=== PATIENT | female | born 1945 | race Caucasian/White ===

== ENCOUNTER → 2017-06-02 | Day surgery (SDC) | payer MEDICARE ==
[~2017-06-02] MED LIST: ONDANSETRON HCL 4 MG/2 ML VIAL IV PUSH ONE; PROPOFOL 200 MG/20 ML AMP IV ONE
--- NOTE | 2017-06-09 14:17 | TN ---
cc: JERROD CALDERON MD DATE OF SURGERY 06/02/2017 PREOPERATIVE DIAGNOSIS Epiretinal membrane left eye, metamorphopsia, retinal striae, retinal edema. POSTOPERATIVE DIAGNOSIS Epiretinal membrane left eye, metamorphopsia, retinal striae, retinal edema. PROCEDURE Pars plana vitrectomy, removal of epiretinal membrane/internal limiting membrane, air-fluid exchange, endolaser, left eye. COMPLICATIONS None. BLOOD LOSS Less than [address] Benitez general. INDICATION This is a delightful patient with worsening vision in her left eye. The vision was now to the point that it is interfering with daily life and activities and the patient elected for surgical correction. The patient understands that some visual distortion will likely remain after surgery. PROCEDURE NOTE After informed consent was obtained, the patient was brought to the operating room. General anesthesia was established and the left eye was prepped and draped in sterile fashion with Betadine in the conjunctival fornix. A three-port pars plana vitrectomy was established with self-retaining infusion cannula. Core vitreous was evacuated. Vitreous traction of the peripheral retina was relieved with vitrectomy. The ERM/ILM on complex was highlighted with ICG and removed with Kevin ILM forceps. The retina had renewed mobility and improved contour. Scleral depressed examination revealed areas of peripheral retinal thinning and impending retinal holes; these areas were treated with endolaser. Air-fluid exchange was carried out. The trocars were removed and sclerotomies closed. Subconjunctival injection of Ancef and dexamethasone were given. The eye was patched with Tobramycin ointment. The patient was brought to the recovery room in stable condition and will continue followup with [facility] for her postoperative care. Jerrod Caldreon MD KW/SSB /9:46 PM /7:02 AM
== END | disposition home or self-care (01) ==
LOC: ESDC 08:53
PROVIDERS: ATTEND Ophthalmology
DX: H35.372 Puckering of macula, left eye (principal); H53.15 Visual distortions of shape and size; H35.81 Retinal edema; E11.9 Type 2 diabetes mellitus without complications
CPT/HCPCS: 00145; 67043; J2405